=== PATIENT | male | born 1955 | race Hispanic/Latino ===

== ENCOUNTER 2018-05-16 10:32 | Outpatient (CLI) | payer OTHER ==
--- NOTE | 2018-05-16 10:48 | RAD ---
PA AND LATERAL CHEST: History: Pre-operative evaluation. Bunion surgery on left foot. FINDINGS: The heart size is normal. The lungs are well expanded without focal areas of consolidation, pneumotho races or pleural effusions. There are degenerative changes of the spine. IMPRESSION: No radiographic evidence of acute cardiopulmonary process. POS: [facility]
== END 2018-05-16 10:33 | disposition home or self-care (01) ==
LOC: BICRAD 10:32
PROVIDERS: ATTEND Nurse Practitioner Family
DX: Z01.818 Encounter for other preprocedural examination (principal)
CPT/HCPCS: 71046

== ENCOUNTER 2018-08-15 14:42 | Outpatient (CLI) | payer OTHER | END 2018-08-15 14:43 | disposition home or self-care (01) | LOC: LABBT 14:42 | PROVIDERS: ATTEND Podiatrist Foot & Ankle Surgery | DX: Z01.818 Encounter for other preprocedural examination (principal); M20.22 Hallux rigidus, left foot | CPT/HCPCS: 93005; 93010 ==

== ENCOUNTER 2018-08-22 09:15 | Day surgery (SDC) | payer OTHER ==
[2018-08-22] MEDS ORDERED: Fentanyl 100 MCG/2 ML VIAL ONE ×2 (10:43→13:49)
[2018-08-22] MEDS ORDERED: Bupivacaine PF 0.5% 30 ML VIAL ONE (10:52)
--- NOTE | 2018-08-22 13:34 | RAD ---
2 views left foot: 08/22/2018 COMPARISON: None HISTORY: Evaluation of left foot following surgery FINDINGS: Dorsal fusion hardware present at the first metatarsal-phalangeal joint. No evidence for alvarez rdware failure. Adjacent soft tissue swelling and subcutaneous gas noted, consistent with recent surgery. No displaced fracture or dislocation. Mid foot dorsal degenerative change noted. Mild enthes ophyte formation noted at the insertion of the Achilles tendon. IMPRESSION: Postoperative change demonstrating recent fusion of the first metatarsal phalangeal joint .
[2018-08-22] MEDS ORDERED: Lidocaine 1% PF 5 ML VIAL ONE (13:37)
[2018-08-22] MEDS ORDERED: Succinylcholine Chloride 20 MG/ML 10 ml SYRINGE FS ONE (13:37)
[2018-08-22] MEDS ORDERED: PROPOFOL 200 MG/20 ML VIAL ONE (13:37)
[2018-08-22] MEDS ORDERED: ePHEDrine 50 MG/ML VIAL ONE (13:37)
[2018-08-22] MEDS ORDERED: Ondansetron PF 4 MG/2 ML Vial ONE (13:37)
[2018-08-22] MEDS ORDERED: Dexamethasone 20 MG/5 ML VIAL ONE (13:37)
--- NOTE | 2018-08-23 11:21 | OP ---
DATE OF PROCEDURE: 08/22/2018 PREOPERATIVE DIAGNOSES: 1. Hallux rigidus, left foot. 2. Hallux valgus, left foot. POSTOPERATIVE DIAGNOSES: 1. Hallux rigidus, left foot. 2. Hallux valgus, left foot. PROCEDURE PERFORMED: First metatarsophalangeal joint arthrodesis, left foot. ANESTHESIA: Local with monitored anesthetic care. HEMOSTASIS: Pneumatic tourniquet about the left ankle at 250 mmHg. ESTIMATED BLOOD LOSS: None. MATERIALS: 1. A 2.0-mm headless compression screws, Synthes. 2. Synthes locking compression plate for 1st MTPJ fusion and 5 locking screws. 3. 2-0 Vicryl. 4. 4-0 Vicryl. 5. 3-0 nylon. INJECTABLES: 10 mL of 0.5% Marcaine plain preoperatively. COMPLICATIONS: None. DESCRIPTION OF PROCEDURE: The patient was brought to the operative suite, placed supine on the operative table. A time-out was performed, identifying correct patient, procedure, and operative site. A well-padded tourniquet was placed about the left ankle. The foot was prepped and draped in an aseptic manner. Tourniquet was raised to 250 mmHg and attention was directed to the 1st metatarsophalangeal joint. A 6-cm linear longitudinal incision just medial to the extensor hallucis longus centered about the 1st metatarsophalangeal joint. Sharp and blunt dissection through subcutaneous tissues avoiding vital structures, ligating bleeders as necessary. Dissection down to the capsule and periosteum. Capsular incision was made between the skin incision on the dorsal aspect of the head and joint. Capsule and periosteum reflected away from the head of the 1st metatarsal and base of the proximal phalanx of the 1st digit. Medial eminence resected with power saw. Examination of the joint surface showed that there was approximately 40% cartilage occlusion from the head of the 1st metatarsal and a matching the original mid base of the proximal phalanx. All cartilage was removed from the head of the 1st metatarsal and base of the proximal phalanx and the surfaces were fenestrated with K-wire in order to promote fusion. Toe was temporarily fixated in the correct position, which was confirmed with fluoroscopy and the compression screw was placed from distal medial to proximal lateral across the fusion site. Locking plate was then placed on the dorsal aspect of the fusion site utilizing standard technique. All screw placement and hardware were confirmed with fluoroscopy and reduction of the deformity was confirmed with fluoroscopy. Wound was irrigated with sterile saline. Capsule and periosteum repaired with 2-0 Vicryl, subcutaneous tissues with 4-0 Vicryl, and skin with 3-0 nylon. Bandages were applied including Xeroform gauze, roll gauze, and an Crescencio bandage. Tourniquet was released, noted immediate hyperemia to the distal aspect of all toes. The patient tolerated the procedure and anesthesia well and was transported out of the operative suite with vital signs stable and neurovascular status intact. He will be kept for a short period of monitoring and discharged home with aftercare instructions and follow up with me in 1 week. Job ID: [id number]
== END 2018-08-22 15:45 | disposition home or self-care (01) ==
LOC: SDC 09:15
PROVIDERS: ATTEND Podiatrist Foot & Ankle Surgery
PROC: 0SGN04Z Fusion of Left Metatarsal-Phalangeal Joint with Internal Fixation Device, Open Approach (ICD-10-PCS; principal; 2018-08-22)
DX: M20.22 Hallux rigidus, left foot (principal); M20.12 Hallux valgus (acquired), left foot; M21.612 Bunion of left foot; I10 Essential (primary) hypertension; Z79.1 Long term (current) use of non-steroidal anti-inflammatories (NSAID); Z79.899 Other long term (current) drug therapy
CPT/HCPCS: 76000; C1713; J0690; J1100; J2001; J2405; J2704; J3010; J3490; S0020